=== PATIENT | male | born 1995 | race American Indian/Alaskan Native ===

== ENCOUNTER 2017-12-12 23:09 | Observation (INO) | payer SELFPAY | END 2017-12-13 10:00 | disposition home or self-care (01) | LOC: D.ER 23:09 → D.SDCHOLD 12-13 02:29 | DX: T18.2XXA Foreign body in stomach, initial encounter (principal); X58.XXXA Exposure to other specified factors, initial encounter; K20.9 Esophagitis, unspecified; K29.60 Other gastritis without bleeding; K29.71 Gastritis, unspecified, with bleeding ==